=== PATIENT | female | born 1935 | race Caucasian/White ===

== ENCOUNTER 2021-01-26 19:51 | Inpatient (IN) | payer MEDICARE ==
[2021-01-27 00:28] VITALS: BMI 29.1
[2021-01-27] MEDS ORDERED: Acetaminophen/Codeine 30-300mg Tablet PO PRN (02:56)
[2021-01-27] MEDS ORDERED: Dextrose 50% Abboject 50 ML SYRINGE SLOW IVP PRN (09:00)
[2021-01-27] MEDS ORDERED: Dextrose 5% in Water 1,000 ML IV PRN (09:00)
[2021-01-27] MEDS ORDERED: hydrALAZINE 20 MG/ML VIAL SLOW IVP PRN (09:00)
[2021-01-27] MEDS: Dexamethasone 4 mg/ml Vial SLOW IVP SCH (10:20)
[2021-01-27] MEDS: Enoxaparin Sodium 30 MG/0.3 ML SYRINGE SC SCH (10:20)
[2021-01-27] MEDS: Acetaminophen 325 MG TAB PO PRN (11:59)
[2021-01-27] MEDS ORDERED: Albuterol 200 PUFF (6.7GM INHALER) INH PRN (16:27)
[2021-01-27] MEDS: HumaLOG 300 UNITS/3 ML VIAL SC PRN ×2 (17:50→20:33)
[2021-01-27] MEDS: Albuterol 200 PUFF (6.7GM INHALER) INH SCH (20:26)
[2021-01-27] MEDS: Loratadine 10 MG TAB PO SCH (20:27)
[2021-01-27] MEDS: Calcium Carbonate 600 MG + Vit D TAB PO SCH (20:27)
[2021-01-27] MEDS: guaiFENesin ER 600 MG TAB PO SCH (20:27)
[2021-01-27] MEDS: Aspirin Chewable 81 MG TAB PO SCH (20:27)
[2021-01-27] MEDS: Amlodipine 5 MG TAB PO SCH (20:27)
[2021-01-27] MEDS: Vit A,C & E/Lutein/Minerals Tablet PO SCH (20:32)
[2021-01-27] MEDS: Pregabalin 50 MG CAP PO SCH (20:33)
[2021-01-27] MEDS ORDERED: Non-Formulary Item 1 EACH (Pregabalin [Pregabalin] 100 MG Capsule) PO SCH (21:00)
[2021-01-27] MEDS ORDERED: Non-Formulary Item 1 EACH (Cetirizine Hcl [All Day Allergy] 10 MG Capsule) PO SCH (21:00)
[2021-01-27] MEDS ORDERED: Non-Formulary Item 1 EACH (Vit A/Vit C/Vit E/Zinc/Copper [Preservision Areds] 1 TABLET Ta PO SCH (21:00)
[2021-01-28] MEDS: Albuterol 200 PUFF (6.7GM INHALER) INH SCH ×4 (01:06→19:30)
[2021-01-28] MEDS: Acetaminophen 325 MG TAB PO PRN ×2 (01:18→21:05)
[2021-01-28 07:21] LABS: Anion Gap 11 mmol/L (10-20); BUN (Urea Nitrogen) 31 mg/dL (9.8-20.1); CRP (Inflammatory) 6.06 mg/dL (= or < 0.5); Calc. Creatinine Clearance 28 mL/min (70-130); Calcium 8.9 mg/dL (7.8-10.44); Carbon Dioxide 34 mmol/L (23-31); Chloride 102 mmol/L (98-107); Glucose 113 mg/dL (83-110); Potassium 4.7 mmol/L (3.5-5.1); Sodium 142 mmol/L (136-145)
[2021-01-28 08:28] LABS: #Lymphocytes 0.6 thou/uL (1.20-3.40); #Monocytes 0.4 thou/uL (0.11-0.59); #Neutrophils 4.7 thou/uL (1.40-6.50); %Basophils 0.1 % (0.0-1.0); %Eosinophils 0.4 % (0.0-10.0); %Lymphocytes 10.6 % (21.0-51.0); %Monocytes 6.2 % (0.0-10.0); %Neutrophils 82.7 % (42.0-75.0); Hemoglobin 13.5 g/dL (12.0-16.0); MDiff Complete? YES; Mean Corpuscular HGB CONC 31.9 g/dL (32.0-36.0); Mean Corpuscular Hemoglobin 30.1 pg (27.0-31.0); Mean Corpuscular Volume 94.4 fL (78.0-98.0); Mean Platelet Volume 9.1 fL (7.4-10.4); Platelet Count 114 thou/uL (130-400); Platelet Morphology Comment Appears Decreased; Polychromasia SLIGHT = 2-3 cells (100X) (0-2/hpf); RBC Distribution Width 14.6 % (11.5-14.5); White Blood Cell (WBC) Count 5.7 thou/uL (4.8-10.8)
[2021-01-28] MEDS ORDERED: Non-Formulary Item 1 EACH (Sertraline Hcl [Sertraline Hcl] 50 MG Tablet) PO SCH (09:00)
[2021-01-28] MEDS ORDERED: Non-Formulary Item 1 EACH (Multivitamin [Multivitamin] 1 EACH Tablet) PO SCH (09:00)
[2021-01-28] MEDS ORDERED: EXENATIDE 10 MCG/0.04 ML SQ SCH (09:00)
[2021-01-28] MEDS ORDERED: Non-Formulary Item 1 EACH (Celecoxib [Celecoxib] 200 MG Capsule) PO SCH (09:00)
[2021-01-28] MEDS: Vit A,C & E/Lutein/Minerals Tablet PO SCH ×2 (09:03→21:03)
[2021-01-28] MEDS: CeleCOXIB 100 MG CAP PO SCH (09:05)
[2021-01-28] MEDS: Pregabalin 50 MG CAP PO SCH ×2 (09:05→21:04)
[2021-01-28] MEDS: guaiFENesin ER 600 MG TAB PO SCH ×2 (09:06→21:04)
[2021-01-28] MEDS: Atorvastatin Calcium 20 MG TAB PO SCH (09:06)
[2021-01-28] MEDS: Multivit, Therapeutic 1 TAB PO SCH (09:06)
[2021-01-28] MEDS: Furosemide 40 MG TAB PO SCH (09:06)
[2021-01-28] MEDS: DULoxetine 60 MG CAP PO SCH (09:07)
[2021-01-28] MEDS: Amlodipine 5 MG TAB PO SCH ×2 (09:07→21:05)
[2021-01-28] MEDS: Enoxaparin Sodium 30 MG/0.3 ML SYRINGE SC SCH (09:08)
[2021-01-28] MEDS: Dexamethasone 4 mg/ml Vial SLOW IVP SCH (09:08)
[2021-01-28] MEDS ORDERED: Acetaminophen/Codeine 30-300mg Tablet PO SCH (17:15)
[2021-01-28] MEDS ORDERED: Polyethylene Glycol 3350 17 GM Packet PO SCH (20:15)
[2021-01-28] MEDS: Calcium Carbonate 600 MG + Vit D TAB PO SCH (21:03)
[2021-01-28] MEDS: Benzonatate 100 MG CAP PO PRN (21:05)
[2021-01-28] MEDS: Aspirin Chewable 81 MG TAB PO SCH (21:05)
[2021-01-28] MEDS: Loratadine 10 MG TAB PO SCH (21:05)
[2021-01-28] MEDS: HumaLOG 300 UNITS/3 ML VIAL SC PRN (21:07)
[2021-01-29] MEDS: Albuterol 200 PUFF (6.7GM INHALER) INH SCH ×4 (00:33→19:03)
[2021-01-29] MEDS: Acetaminophen 325 MG TAB PO PRN (04:57)
[2021-01-29] MEDS: Enoxaparin Sodium 30 MG/0.3 ML SYRINGE SC SCH (08:56)
[2021-01-29] MEDS: CeleCOXIB 100 MG CAP PO SCH (08:57)
[2021-01-29] MEDS: DULoxetine 60 MG CAP PO SCH (08:57)
[2021-01-29] MEDS: Pregabalin 50 MG CAP PO SCH ×2 (08:58→21:01)
[2021-01-29] MEDS: Vit A,C & E/Lutein/Minerals Tablet PO SCH ×2 (08:58→21:00)
[2021-01-29] MEDS: Multivit, Therapeutic 1 TAB PO SCH (09:00)
[2021-01-29] MEDS: Amlodipine 5 MG TAB PO SCH ×2 (09:00→21:36)
[2021-01-29] MEDS: guaiFENesin ER 600 MG TAB PO SCH ×2 (09:01→21:01)
[2021-01-29] MEDS: Atorvastatin Calcium 20 MG TAB PO SCH (09:01)
[2021-01-29] MEDS: Furosemide 40 MG TAB PO SCH (09:01)
[2021-01-29] MEDS: Dexamethasone 4 mg/ml Vial SLOW IVP SCH (09:02)
[2021-01-29] MEDS: Calcium Carbonate 600 MG + Vit D TAB PO SCH (21:00)
[2021-01-29] MEDS: Benzonatate 100 MG CAP PO PRN (21:01)
[2021-01-29] MEDS: Loratadine 10 MG TAB PO SCH (21:01)
[2021-01-29] MEDS: Aspirin Chewable 81 MG TAB PO SCH (21:01)
[2021-01-29] MEDS: Acetaminophen/Codeine 30-300mg Tablet PO PRN (21:11)
[2021-01-30] MEDS: Albuterol 200 PUFF (6.7GM INHALER) INH SCH ×4 (02:50→19:42)
[2021-01-30] MEDS: Acetaminophen 325 MG TAB PO PRN ×2 (04:39→10:26)
[2021-01-30] MEDS: Benzonatate 100 MG CAP PO PRN (04:40)
[2021-01-30 08:10] LABS: #Eosinphils 0.1 thou/uL (0.0-0.7); #Lymphocytes 1.3 thou/uL (1.20-3.40); #Monocytes 1.4 thou/uL (0.11-0.59); #Neutrophils 7.3 thou/uL (1.40-6.50); %Basophils 0.5 % (0.0-1.0); %Eosinophils 0.5 % (0.0-10.0); %Lymphocytes 13.2 % (21.0-51.0); %Monocytes 13.8 % (0.0-10.0); Hemoglobin 12.9 g/dL (12.0-16.0); Mean Corpuscular HGB CONC 32.8 g/dL (32.0-36.0); Mean Corpuscular Hemoglobin 30.5 pg (27.0-31.0); Mean Platelet Volume 8.2 fL (7.4-10.4); Platelet Count 187 thou/uL (130-400); RBC Distribution Width 14.8 % (11.5-14.5); Red Blood Cell (RBC) Count 4.24 mill/uL (4.20-5.40); White Blood Cell (WBC) Count 10.1 thou/uL (4.8-10.8)
[2021-01-30 08:17] LABS: Anion Gap 13 mmol/L (10-20); BUN (Urea Nitrogen) 43 mg/dL (9.8-20.1); CRP (Inflammatory) 1.62 mg/dL (= or < 0.5); Calc. Creatinine Clearance 26 mL/min (70-130); Calcium 8.9 mg/dL (7.8-10.44); Carbon Dioxide 30 mmol/L (23-31); Chloride 102 mmol/L (98-107); Glucose 93 mg/dL (83-110); Potassium 4.3 mmol/L (3.5-5.1); Sodium 141 mmol/L (136-145)
[2021-01-30] MEDS: DULoxetine 60 MG CAP PO SCH (10:15)
[2021-01-30] MEDS: Enoxaparin Sodium 30 MG/0.3 ML SYRINGE SC SCH (10:15)
[2021-01-30] MEDS: Amlodipine 5 MG TAB PO SCH ×2 (10:16→20:28)
[2021-01-30] MEDS: CeleCOXIB 100 MG CAP PO SCH (10:16)
[2021-01-30] MEDS: Atorvastatin Calcium 20 MG TAB PO SCH (10:16)
[2021-01-30] MEDS: Multivit, Therapeutic 1 TAB PO SCH (10:16)
[2021-01-30] MEDS: guaiFENesin ER 600 MG TAB PO SCH ×2 (10:18→20:26)
[2021-01-30] MEDS: Pregabalin 50 MG CAP PO SCH ×2 (10:18→20:26)
[2021-01-30] MEDS: Vit A,C & E/Lutein/Minerals Tablet PO SCH ×2 (10:20→20:28)
[2021-01-30] MEDS: Furosemide 40 MG TAB PO SCH (10:26)
[2021-01-30] MEDS: Dexamethasone 4 mg/ml Vial SLOW IVP SCH (10:26)
[2021-01-30] MEDS: Fioricet 325/50/40 mg Tablet PO PRN (18:15)
[2021-01-30] MEDS: Aspirin Chewable 81 MG TAB PO SCH (20:26)
[2021-01-30] MEDS: Loratadine 10 MG TAB PO SCH (20:27)
[2021-01-30] MEDS: Calcium Carbonate 600 MG + Vit D TAB PO SCH (20:27)
[2021-01-30] MEDS: Acetaminophen/Codeine 30-300mg Tablet PO PRN (20:27)
[2021-01-30] MEDS: HumaLOG 300 UNITS/3 ML VIAL SC PRN (21:50)
[2021-01-31] MEDS: Albuterol 200 PUFF (6.7GM INHALER) INH SCH ×4 (00:59→20:10)
[2021-01-31] MEDS: Pregabalin 50 MG CAP PO SCH ×2 (08:38→20:59)
[2021-01-31] MEDS: Multivit, Therapeutic 1 TAB PO SCH (08:38)
[2021-01-31] MEDS: DULoxetine 60 MG CAP PO SCH (08:38)
[2021-01-31] MEDS: CeleCOXIB 100 MG CAP PO SCH (08:38)
[2021-01-31] MEDS: guaiFENesin ER 600 MG TAB PO SCH ×2 (08:38→20:59)
[2021-01-31] MEDS: Atorvastatin Calcium 20 MG TAB PO SCH (08:39)
[2021-01-31] MEDS: Furosemide 40 MG TAB PO SCH (08:39)
[2021-01-31] MEDS: Amlodipine 5 MG TAB PO SCH ×2 (08:39→20:59)
[2021-01-31] MEDS: Dexamethasone 4 mg/ml Vial SLOW IVP SCH (08:40)
[2021-01-31] MEDS: Enoxaparin Sodium 30 MG/0.3 ML SYRINGE SC SCH (08:40)
[2021-01-31] MEDS: Vit A,C & E/Lutein/Minerals Tablet PO SCH ×2 (09:00→21:00)
[2021-01-31] MEDS: Fioricet 325/50/40 mg Tablet PO PRN (16:03)
[2021-01-31] MEDS: HumaLOG 300 UNITS/3 ML VIAL SC PRN (16:04)
[2021-01-31] MEDS: guaiFENesin/Codeine 200 mg/20 mg 10 ml Cup PO PRN (20:58)
[2021-01-31] MEDS: Acetaminophen/Codeine 30-300mg Tablet PO PRN (20:58)
[2021-01-31] MEDS: Loratadine 10 MG TAB PO SCH (20:59)
[2021-01-31] MEDS: Calcium Carbonate 600 MG + Vit D TAB PO SCH (20:59)
[2021-01-31] MEDS: Aspirin Chewable 81 MG TAB PO SCH (20:59)
[2021-02-01] MEDS: Albuterol 200 PUFF (6.7GM INHALER) INH SCH ×4 (03:01→18:40)
[2021-02-01] MEDS: Fioricet 325/50/40 mg Tablet PO PRN (04:37)
[2021-02-01 09:23] LABS: #Lymphocytes 1.4 thou/uL (1.20-3.40); #Monocytes 1.7 thou/uL (0.11-0.59); #Neutrophils 9.8 thou/uL (1.40-6.50); %Basophils 0.1 % (0.0-1.0); %Eosinophils 0.3 % (0.0-10.0); %Lymphocytes 10.8 % (21.0-51.0); %Monocytes 12.9 % (0.0-10.0); %Neutrophils 75.9 % (42.0-75.0); Hemoglobin 12.6 g/dL (12.0-16.0); Mean Corpuscular HGB CONC 33.6 g/dL (32.0-36.0); Mean Corpuscular Hemoglobin 30.9 pg (27.0-31.0); Mean Platelet Volume 8.6 fL (7.4-10.4); Platelet Count 218 thou/uL (130-400); RBC Distribution Width 14.8 % (11.5-14.5); Red Blood Cell (RBC) Count 4.08 mill/uL (4.20-5.40); White Blood Cell (WBC) Count 12.8 thou/uL (4.8-10.8)
[2021-02-01 09:41] LABS: Anion Gap 16 mmol/L (10-20); BUN (Urea Nitrogen) 50 mg/dL (9.8-20.1); CRP (Inflammatory) 1.31 mg/dL (= or < 0.5); Calc. Creatinine Clearance 26 mL/min (70-130); Calcium 8.8 mg/dL (7.8-10.44); Carbon Dioxide 26 mmol/L (23-31); Chloride 100 mmol/L (98-107); Glucose 112 mg/dL (83-110); Potassium 4.7 mmol/L (3.5-5.1); Sodium 137 mmol/L (136-145)
[2021-02-01] MEDS: Vit A,C & E/Lutein/Minerals Tablet PO SCH ×2 (10:14→20:42)
[2021-02-01] MEDS: Multivit, Therapeutic 1 TAB PO SCH (10:14)
[2021-02-01] MEDS: Furosemide 40 MG TAB PO SCH (10:14)
[2021-02-01] MEDS: Amlodipine 5 MG TAB PO SCH ×2 (10:14→20:40)
[2021-02-01] MEDS: DULoxetine 60 MG CAP PO SCH (10:14)
[2021-02-01] MEDS: Pregabalin 50 MG CAP PO SCH ×2 (10:16→20:40)
[2021-02-01] MEDS: Atorvastatin Calcium 20 MG TAB PO SCH (10:16)
[2021-02-01] MEDS: guaiFENesin ER 600 MG TAB PO SCH ×2 (10:16→20:40)
[2021-02-01] MEDS: CeleCOXIB 100 MG CAP PO SCH (10:19)
[2021-02-01] MEDS: Dexamethasone 4 mg/ml Vial SLOW IVP SCH (10:19)
[2021-02-01] MEDS: Enoxaparin Sodium 30 MG/0.3 ML SYRINGE SC SCH (10:20)
[2021-02-01] MEDS: Benzonatate 100 MG CAP PO PRN ×2 (17:54→20:40)
[2021-02-01] MEDS: guaiFENesin/Codeine 200 mg/20 mg 10 ml Cup PO PRN (20:39)
[2021-02-01] MEDS: Calcium Carbonate 600 MG + Vit D TAB PO SCH (20:40)
[2021-02-01] MEDS: Loratadine 10 MG TAB PO SCH (20:40)
[2021-02-01] MEDS: Aspirin Chewable 81 MG TAB PO SCH (20:40)
[2021-02-01] MEDS: Acetaminophen/Codeine 30-300mg Tablet PO PRN (20:40)
[2021-02-02] MEDS: Albuterol 200 PUFF (6.7GM INHALER) INH SCH ×4 (02:44→18:40)
[2021-02-02] MEDS: Acetaminophen/Codeine 30-300mg Tablet PO PRN ×2 (05:35→20:00)
[2021-02-02] MEDS: Benzonatate 100 MG CAP PO PRN (05:36)
[2021-02-02] MEDS: Dexamethasone 4 mg/ml Vial SLOW IVP SCH (10:04)
[2021-02-02] MEDS: CeleCOXIB 100 MG CAP PO SCH (10:05)
[2021-02-02] MEDS: DULoxetine 60 MG CAP PO SCH (10:05)
[2021-02-02] MEDS: Ascorbic Acid 500 mg Chewable Tablet PO SCH (10:05)
[2021-02-02] MEDS: Vit A,C & E/Lutein/Minerals Tablet PO SCH ×2 (10:05→19:59)
[2021-02-02] MEDS: Pregabalin 50 MG CAP PO SCH ×2 (10:06→20:01)
[2021-02-02] MEDS: Zinc Sulfate 220 MG CAP PO SCH (10:06)
[2021-02-02] MEDS: guaiFENesin ER 600 MG TAB PO SCH ×2 (10:06→19:59)
[2021-02-02] MEDS: Multivit, Therapeutic 1 TAB PO SCH (10:06)
[2021-02-02] MEDS: Furosemide 40 MG TAB PO SCH (10:07)
[2021-02-02] MEDS: Enoxaparin Sodium 30 MG/0.3 ML SYRINGE SC SCH (10:07)
[2021-02-02] MEDS: Atorvastatin Calcium 20 MG TAB PO SCH (10:07)
[2021-02-02] MEDS: Amlodipine 5 MG TAB PO SCH ×2 (10:08→20:02)
[2021-02-02] MEDS: Acetaminophen 325 MG TAB PO PRN (14:18)
[2021-02-02] MEDS ORDERED: Ondansetron PF 4 MG/2 ML Vial IVP PRN (14:23)
[2021-02-02] MEDS: Calcium Carbonate 600 MG + Vit D TAB PO SCH (19:59)
[2021-02-02] MEDS: Aspirin Chewable 81 MG TAB PO SCH (19:59)
[2021-02-02] MEDS: Loratadine 10 MG TAB PO SCH (20:02)
[2021-02-02] MEDS: Fioricet 325/50/40 mg Tablet PO PRN (22:21)
[2021-02-03] MEDS: Albuterol 200 PUFF (6.7GM INHALER) INH SCH ×4 (01:22→18:26)
[2021-02-03] MEDS: Acetaminophen 325 MG TAB PO PRN ×2 (01:55→10:38)
[2021-02-03] MEDS: CeleCOXIB 100 MG CAP PO SCH (10:14)
[2021-02-03] MEDS: Vit A,C & E/Lutein/Minerals Tablet PO SCH ×2 (10:15→21:05)
[2021-02-03] MEDS: Pregabalin 50 MG CAP PO SCH ×2 (10:15→21:05)
[2021-02-03] MEDS: Atorvastatin Calcium 20 MG TAB PO SCH (10:16)
[2021-02-03] MEDS: DULoxetine 60 MG CAP PO SCH (10:16)
[2021-02-03] MEDS: Zinc Sulfate 220 MG CAP PO SCH (10:16)
[2021-02-03] MEDS: Ascorbic Acid 500 mg Chewable Tablet PO SCH (10:16)
[2021-02-03] MEDS: Furosemide 40 MG TAB PO SCH (10:17)
[2021-02-03] MEDS: Amlodipine 5 MG TAB PO SCH ×2 (10:17→21:06)
[2021-02-03] MEDS: Enoxaparin Sodium 30 MG/0.3 ML SYRINGE SC SCH (10:17)
[2021-02-03] MEDS: Multivit, Therapeutic 1 TAB PO SCH (10:18)
[2021-02-03] MEDS: Dexamethasone 4 mg/ml Vial SLOW IVP SCH (10:18)
[2021-02-03] MEDS: guaiFENesin ER 600 MG TAB PO SCH ×2 (12:48→21:06)
[2021-02-03] MEDS: EXENATIDE 10 MCG/0.04 ML SC SCH ×4 (19:18→23:21)
[2021-02-03] MEDS: Calcium Carbonate 600 MG + Vit D TAB PO SCH (21:05)
[2021-02-03] MEDS: Aspirin Chewable 81 MG TAB PO SCH (21:05)
[2021-02-03] MEDS: Loratadine 10 MG TAB PO SCH (21:05)
[2021-02-03] MEDS: Acetaminophen/Codeine 30-300mg Tablet PO PRN (21:12)
[2021-02-04] MEDS: Albuterol 200 PUFF (6.7GM INHALER) INH SCH ×4 (02:25→17:57)
[2021-02-04] MEDS: Enoxaparin Sodium 30 MG/0.3 ML SYRINGE SC SCH (09:10)
[2021-02-04] MEDS: Vit A,C & E/Lutein/Minerals Tablet PO SCH ×2 (09:11→19:22)
[2021-02-04] MEDS: Amlodipine 5 MG TAB PO SCH ×3 (09:11→21:14)
[2021-02-04] MEDS: DULoxetine 60 MG CAP PO SCH (09:11)
[2021-02-04] MEDS: Ascorbic Acid 500 mg Chewable Tablet PO SCH (09:11)
[2021-02-04] MEDS: Atorvastatin Calcium 20 MG TAB PO SCH (09:11)
[2021-02-04] MEDS: Pregabalin 50 MG CAP PO SCH ×2 (09:11→20:06)
[2021-02-04] MEDS: guaiFENesin ER 600 MG TAB PO SCH ×2 (09:12→19:22)
[2021-02-04] MEDS: Multivit, Therapeutic 1 TAB PO SCH (09:12)
[2021-02-04] MEDS: Dexamethasone 4 mg/ml Vial SLOW IVP SCH (09:12)
[2021-02-04] MEDS: Furosemide 40 MG TAB PO SCH (09:12)
[2021-02-04] MEDS: Zinc Sulfate 220 MG CAP PO SCH (09:12)
[2021-02-04] MEDS: CeleCOXIB 100 MG CAP PO SCH (09:12)
[2021-02-04] MEDS: Polyethylene Glycol 3350 17 GM Packet PO PRN (15:15)
[2021-02-04] MEDS: Acetaminophen/Codeine 30-300mg Tablet PO PRN ×2 (15:22→20:07)
[2021-02-04] MEDS: Calcium Carbonate 600 MG + Vit D TAB PO SCH (19:22)
[2021-02-04] MEDS: Aspirin Chewable 81 MG TAB PO SCH (20:06)
[2021-02-04] MEDS: Loratadine 10 MG TAB PO SCH (20:07)
[2021-02-05] MEDS: Acetaminophen/Codeine 30-300mg Tablet PO PRN ×2 (01:02→21:13)
[2021-02-05] MEDS: Albuterol 200 PUFF (6.7GM INHALER) INH SCH ×4 (01:40→18:27)
[2021-02-05] MEDS: DULoxetine 60 MG CAP PO SCH (08:36)
[2021-02-05] MEDS: Vit A,C & E/Lutein/Minerals Tablet PO SCH ×2 (08:36→20:46)
[2021-02-05] MEDS: Furosemide 40 MG TAB PO SCH (08:36)
[2021-02-05] MEDS: CeleCOXIB 100 MG CAP PO SCH (08:36)
[2021-02-05] MEDS: Multivit, Therapeutic 1 TAB PO SCH (08:37)
[2021-02-05] MEDS: Atorvastatin Calcium 20 MG TAB PO SCH (08:37)
[2021-02-05] MEDS: guaiFENesin ER 600 MG TAB PO SCH ×2 (08:37→19:16)
[2021-02-05] MEDS: Pregabalin 50 MG CAP PO SCH ×2 (08:37→21:13)
[2021-02-05] MEDS: Zinc Sulfate 220 MG CAP PO SCH (08:37)
[2021-02-05] MEDS: Dexamethasone 4 mg/ml Vial SLOW IVP SCH (08:38)
[2021-02-05] MEDS: Amlodipine 5 MG TAB PO SCH ×2 (08:38→21:14)
[2021-02-05] MEDS: Enoxaparin Sodium 30 MG/0.3 ML SYRINGE SC SCH (08:38)
[2021-02-05] MEDS: Ascorbic Acid 500 mg Chewable Tablet PO SCH (08:38)
[2021-02-05] MEDS: Acetaminophen 325 MG TAB PO PRN (13:23)
[2021-02-05] MEDS: HumaLOG 300 UNITS/3 ML VIAL SC PRN (16:42)
[2021-02-05] MEDS: Calcium Carbonate 600 MG + Vit D TAB PO SCH (19:15)
[2021-02-05] MEDS: Aspirin Chewable 81 MG TAB PO SCH (21:14)
[2021-02-05] MEDS: Loratadine 10 MG TAB PO SCH (21:14)
[2021-02-06] MEDS: Albuterol 200 PUFF (6.7GM INHALER) INH SCH ×4 (00:26→19:49)
[2021-02-06] MEDS: guaiFENesin/Codeine 200 mg/20 mg 10 ml Cup PO PRN ×2 (02:11→21:30)
[2021-02-06] MEDS: Enoxaparin Sodium 30 MG/0.3 ML SYRINGE SC SCH (08:42)
[2021-02-06] MEDS: Dexamethasone 4 mg/ml Vial SLOW IVP SCH (08:42)
[2021-02-06] MEDS: CeleCOXIB 100 MG CAP PO SCH (08:44)
[2021-02-06] MEDS: Ascorbic Acid 500 mg Chewable Tablet PO SCH (08:44)
[2021-02-06] MEDS: Furosemide 40 MG TAB PO SCH (08:45)
[2021-02-06] MEDS: Zinc Sulfate 220 MG CAP PO SCH (08:45)
[2021-02-06] MEDS: Amlodipine 5 MG TAB PO SCH ×2 (08:45→21:31)
[2021-02-06] MEDS: Multivit, Therapeutic 1 TAB PO SCH (08:46)
[2021-02-06] MEDS: Pregabalin 50 MG CAP PO SCH ×2 (08:46→21:31)
[2021-02-06] MEDS: Atorvastatin Calcium 20 MG TAB PO SCH (08:46)
[2021-02-06] MEDS: DULoxetine 60 MG CAP PO SCH (08:47)
[2021-02-06] MEDS: guaiFENesin ER 600 MG TAB PO SCH ×2 (08:47→21:31)
[2021-02-06] MEDS: Vit A,C & E/Lutein/Minerals Tablet PO SCH ×2 (08:48→21:32)
[2021-02-06] MEDS: Polyethylene Glycol 3350 17 GM Packet PO PRN (14:24)
[2021-02-06] MEDS ORDERED: Bisacodyl 5 MG TAB PO SCH (16:30)
[2021-02-06] MEDS: HumaLOG 300 UNITS/3 ML VIAL SC PRN (16:40)
[2021-02-06] MEDS: Calcium Carbonate 600 MG + Vit D TAB PO SCH (21:30)
[2021-02-06] MEDS: Aspirin Chewable 81 MG TAB PO SCH (21:30)
[2021-02-06] MEDS: Acetaminophen/Codeine 30-300mg Tablet PO PRN (21:31)
[2021-02-06] MEDS: Loratadine 10 MG TAB PO SCH (21:31)
[2021-02-07] MEDS: Albuterol 200 PUFF (6.7GM INHALER) INH SCH ×3 (00:41→14:10)
[2021-02-07 09:02] VITALS: BP 144/86; TEMP 97.9
[2021-02-07] MEDS: Pregabalin 50 MG CAP PO SCH (09:07)
[2021-02-07] MEDS: Enoxaparin Sodium 30 MG/0.3 ML SYRINGE SC SCH (09:07)
[2021-02-07] MEDS: CeleCOXIB 100 MG CAP PO SCH (09:08)
[2021-02-07] MEDS: Amlodipine 5 MG TAB PO SCH (09:09)
[2021-02-07] MEDS: Atorvastatin Calcium 20 MG TAB PO SCH (09:09)
[2021-02-07] MEDS: DULoxetine 60 MG CAP PO SCH (09:10)
[2021-02-07] MEDS: Acetaminophen 325 MG TAB PO PRN (09:10)
[2021-02-07] MEDS: Ascorbic Acid 500 mg Chewable Tablet PO SCH (09:10)
[2021-02-07] MEDS: Zinc Sulfate 220 MG CAP PO SCH (09:10)
[2021-02-07] MEDS: Dexamethasone 4 mg/ml Vial SLOW IVP SCH (09:11)
[2021-02-07] MEDS: Furosemide 40 MG TAB PO SCH (09:11)
[2021-02-07] MEDS: guaiFENesin ER 600 MG TAB PO SCH (09:11)
[2021-02-07] MEDS: Multivit, Therapeutic 1 TAB PO SCH (09:11)
[2021-02-07] MEDS: Vit A,C & E/Lutein/Minerals Tablet PO SCH (09:12)
[2021-02-07] MEDS: Polyethylene Glycol 3350 17 GM Packet PO PRN (09:30)
[2021-02-07] MEDS ORDERED: Magnesium Citrate 300 ML BOT PO SCH (09:45)
[2021-02-07] MEDS ORDERED: Morphine 4 MG/ML VIAL SLOW IVP SCH (12:15)
== END 2021-02-07 16:22 | disposition swing bed (61) | DRG 177 ==
LOC: T4-A 19:51
PROVIDERS: ADMIT Student in an Organized Health Care Education/Training Program; ATTEND Internal Medicine
PROC: 8E0ZXY6 Isolation (ICD-10-PCS; 2021-01-26)
PROC: 3E0333Z Introduction of Anti-inflammatory into Peripheral Vein, Percutaneous Approach (ICD-10-PCS; principal; 2021-01-27)
DX: U07.1 COVID-19 (principal); Z66 Do not resuscitate; J12.82 Pneumonia due to coronavirus disease 2019; J96.21 Acute and chronic respiratory failure with hypoxia; N18.4 Chronic kidney disease, stage 4 (severe); J44.0 Chronic obstructive pulmonary disease with (acute) lower respiratory infection; G12.21 Amyotrophic lateral sclerosis; G81.94 Hemiplegia, unspecified affecting left nondominant side; E11.22 Type 2 diabetes mellitus with diabetic chronic kidney disease; I12.9 Hypertensive chronic kidney disease with stage 1 through stage 4 chronic kidney disease, or unspecified chronic kidney disease; E03.9 Hypothyroidism, unspecified; E78.5 Hyperlipidemia, unspecified; H35.30 Unspecified macular degeneration; K59.00 Constipation, unspecified; M79.89 Other specified soft tissue disorders; Z88.1 Allergy status to other antibiotic agents; Z88.2 Allergy status to sulfonamides; Z88.8 Allergy status to other drugs, medicaments and biological substances; Z99.81 Dependence on supplemental oxygen; Z95.5 Presence of coronary angioplasty implant and graft; Z79.899 Other long term (current) drug therapy; Z79.890 Hormone replacement therapy
CPT/HCPCS: 36415; 36416; 74018; 80048; 82728; 85025; 85379; 86140; J1100; J1650; J1815